=== PATIENT | male | born 1970 | race Caucasian/White ===

== ENCOUNTER → 2018-01-29 | Outpatient (REF) ==
[2015-09-01 11:06] VITALS: BMI 43.7
[~2018-01-29] MED LIST: CEFU250 PO; CEP500 PO; CEPH-13 PO; CEPH500C24 PO; CIP500 PO; CIPR-212 PO; CLIN300C99 PO; DOCU-299 PO; DYAZIDE PO; FER325 PO; FERR-41 PO; FLUN25SP NS; GUAI600T57 PO; HCTZ25 PO; HYDR-2966 PO; HYDR25CA83 PO; LISI-362 PO; LISINOPRIL PO; LOR7.5/325 PO; MEC125 PO; METH-280 PO; METR250 PO; MUPIROCIN; NAP250 PO; OMEP-153 PO; ONDA4TAB PO; PAN40 PO; PANT40TA13 PO; PER PO; PHENA200 PO; PRED-1 PO; PRED20TA6 PO; RANI-324 PO; SUCR1TAB51 PO; SULF-198 PO; TAM4 PO; TETR-30 PO; TRA50 PO; TRIA15CR40 TP; TRIA80OI13 TP; [UNRECOGNIZED DRUG - CODE] PO
--- NOTE | 2018-01-30 07:25 | PT INITIAL EVALUATION ---
MEDICAL DIAGNOSIS: Lymphedema TREATMENT DIAGNOSIS: B LE Phlebolymphedema, Venous Insufficiency DATE OF ONSET: 12/28/17 SUBJECTIVE: Yakov is a 47 year-old male presenting to physical therapy following gradual onset of B LE edema. Pt reports that the edema has developed over several years, and most recently it resulted in a large lobule affecting foot and gait mechanics requiring custom footwear. Pt reports no PABLO causing the swelling initially, but reports that it increased following a bout of cellulitis in 2015. Pt reports no pain with swelling other than pressure on the skin, and ankle joint stiffness from poor mechanics. REHAB PROBLEM LIST: Increased Pain Decreased ROM Decreased Strength Impaired Transfers Decreased Endurance Decreased Function Decreased ADL's Decreased Mobility Decreased Gait PREVIOUS MEDICAL HISTORY: Hydrochlorothiazide, See EMR OCCUPATION: Pt works at [employer]. OBJECTIVE: Pt presents with B LE swelling L>R. Pt has B hemosiderin staining on the L to mid calf and inferior portion of the calf on the R. Pt has a large lobule on the medial L ankle resulting in L hip lateral rotation when seated or supine. Pt also has developed a blister on the medial arch of the L foot which is being managed by wound care PT and nurse at the [facility]. ROM: Ankle ROM with moderate restrictions secondary to edema and lobule location. Palpation: Edema is soft to touch on the L with minimal fibrosis on the dorsum of the foot and surrounding the toes. Fibrosis is present with pitting edema on the medial aspect of the R distal extremity, foot and toes. Special Tests: Stemmer's sign (+) B dorsum, 1st and 2nd digits. Mobility: Pt requires assistance of 1 to transfer from seated to supine to help support B LE. Gait: Gait significant for decreased step length and height B, L hip lateral rotation with R foot pronation and medial arch collapse. Gait appears antalgic. Other Objective Findings: Circumferential measures in cm (L,R): 1st digit: 12.7 , 10.9, 2nd digit: 10.1, 7.4, dorsum: 36, 32.5, figure-8: 92, 80, above malleoli: 55.6, 41.5, widest part of the calf: 71, 52.8, below knee: 49, 45, above knee: 61, 55.5. ASSESSMENT: Pt shows signs and symptoms consistent with venous insufficiency B with secondary Phlebolymphedema. Physical therapy consisting of manual lymph drainage and compression wrapping is indicated for this patient to reduce B limb volume, and address the above listed impairments to improve function with ADL's and occupational activities. Short Term Goals In 2 weeks pt will decrease circumference of each calf by 2 cm for decreased leg volume resulting in improved abiltiy to perform transfers independently. In 2 weeks pt will be compliant with home HEP to increase muscular pump to manage venous return for improved outcomes with ADL's. In 2 weeks pt will be compliant with diuretics for management of edema for increased function with ADL's. Patient's Goals Decrease limb volume, increase function, decrease pain. PLAN: Patient to be seen for Manual Therapy/STM/MET Range of Motion Stretching Neuromuscular Re-ed Closed Chain Program Posture/Body mechanics Gait Trg/Balance Trg Home Exercise Program [facility]./Manual Traction Therapeutic Activities 5x/Week for 6 Weeks If you have any questions, comments, or concerns about this report or plan, please contact me at . Thank you, Michelle De Jesus, PT, DPT, CLT MTDD
== END ==
LOC: PT 13:44
PROVIDERS: ATTEND Family Medicine
DX: I89.0 Lymphedema, not elsewhere classified (principal); I87.2 Venous insufficiency (chronic) (peripheral); M25.671 Stiffness of right ankle, not elsewhere classified; M25.672 Stiffness of left ankle, not elsewhere classified
CPT/HCPCS: 97162

== ENCOUNTER → 2018-01-30 | Outpatient (REF) ==
[2015-09-01 11:06] VITALS: BMI 43.7
== END ==
LOC: PT 13:44
PROVIDERS: ATTEND Family Medicine
DX: I89.0 Lymphedema, not elsewhere classified (principal)

== ENCOUNTER → 2018-01-31 | Outpatient (REF) ==
[2015-09-01 11:06] VITALS: BMI 43.7
== END ==
LOC: PT 13:52
PROVIDERS: ATTEND Family Medicine
DX: I89.0 Lymphedema, not elsewhere classified (principal)

== ENCOUNTER → 2018-02-01 | Outpatient (REF) ==
[2015-09-01 11:06] VITALS: BMI 43.7
== END ==
LOC: PT 07:48
PROVIDERS: ATTEND Family Medicine
DX: I89.0 Lymphedema, not elsewhere classified (principal)

== ENCOUNTER → 2018-02-05 | Outpatient (REF) ==
[2015-09-01 11:06] VITALS: BMI 43.7
== END ==
LOC: PT 13:52
PROVIDERS: ATTEND Family Medicine
DX: I89.0 Lymphedema, not elsewhere classified (principal)

== ENCOUNTER → 2018-02-06 | Outpatient (REF) ==
[2015-09-01 11:06] VITALS: BMI 43.7
== END ==
LOC: PT 13:57
PROVIDERS: ATTEND Family Medicine
DX: I89.0 Lymphedema, not elsewhere classified (principal)

== ENCOUNTER → 2018-02-07 | Outpatient (REF) ==
[2015-09-01 11:06] VITALS: BMI 43.7
--- NOTE | 2018-02-07 17:06 | PT PLAN OF CARE ---
Physician: Veena Dorado MD Patient is being seen: [g OPPT.PTF] Therapist: Michelle De Jesus, PT, DPT, CLT Medical Diagnosis: B LE Phlebolymphedema, Venous Insufficiency Treatment Diagnosis: B LE Phlebolymphedema, Venous Insufficiency Date of Initial Evaluation: 01/29/18 Date patient was last seen: 02/07/18 Number of treatments: 7 Number of cancellations/No shows: 1 INTERVENTIONS: Manual Therapy/STM/MET Range of Motion Stretching Neuromuscular Re-ed Closed Chain Program Posture/Body mechanics Gait Trg/Balance Trg Home Exercise Program Mech./Manual Traction Therapeutic Activities Short Term Goals In 2 weeks pt will decrease circumference of each calf by 2 cm for decreased leg volume resulting in improved abiltiy to perform transfers independently. In 2 weeks pt will be compliant with home HEP to increase muscular pump to manage venous return for improved outcomes with ADL's. In 2 weeks pt will be compliant with diuretics for management of edema for increased function with ADL's. Patient's Goals Decrease limb volume, increase function, decrease pain. Status of Patient's Goals: In Progress Patient Compliance: Good Prognosis: Reasons for continuing therapy: Yakov shows significant reductions in B LE volume with associated improvement in function. On the L LE the circumferential volume of the calf has reduced by 17.8 cm allowing pt to wear clothing to his work without modifications as well as decreased work load with ambulation. Pt shows decreased size and weight of the lobule on the L LE resulting in improved foot mechanics and gait. Pt is now able to perform a straight leg raise on the R LE secondary to decreases in weight and volume assisting with improved ability to perform transfers. Further treatment is indicated for this patient to continue with limb volume reductions for improved function and transition towards compression garments and independent management. OBJECTIVE: Pt presents with B LE swelling L>R. Pt has B hemosiderin staining on the L to mid calf and inferior portion of the calf on the R. Pt has a large lobule on the medial L ankle resulting in L hip lateral rotation when seated or supine. Pt also has developed a blister on the medial arch of the L foot which is being managed by wound care PT and nurse at the [facility]. ROM: Ankle ROM with moderate restrictions on the L LE secondary to edema and lobule location, but with full ROM on the R ankle. Palpation: Edema is soft to touch on the L with minimal fibrosis on the dorsum of the foot and surrounding the toes. Fibrosis is present with pitting edema on the medial aspect of the R distal extremity, foot and toes. Special Tests: Stemmer's sign (+) B dorsum, 1st and 2nd digits. Mobility: Pt is able to transfer from seated to supine independently without assistance. Gait: Gait significant for decreased step length and height B, L hip lateral rotation with R foot pronation and medial arch collapse. Gait appears antalgic. Other Objective Findings: Initial Evaluation: Circumferential measures in cm (L, R): 1st digit: 12.7, 10.9, 2nd digit: 10.1, 7.4, dorsum: 36, 32.5, figure-8: 92 , 80, above malleoli: 55.6, 41.5, widest part of the calf: 71, 52.8, below knee : 49, 45, above knee: 61, 55.5. 02/07/18: Circumferential measures in cm (L,R): 1st digit: 12.0, 10.9, 2nd digit : 8.8, 7.0, dorsum: 31, 28.5, figure-8: 81.5, 74.1, above malleoli: 45.5, 39.7 , widest part of the calf: 53.2, 48.2, below knee: 49, 45, above knee: 56.5, 54.5. PLAN: 5x/Week for 6 Weeks If you have any questions, comments, or concerns about this report or plan, please contact me at . Thank you, Michelle De Jesus, PT, DPT, CLT RICHARD
== END ==
LOC: PT 14:00
PROVIDERS: ATTEND Family Medicine
DX: I89.0 Lymphedema, not elsewhere classified (principal); I87.2 Venous insufficiency (chronic) (peripheral)

== ENCOUNTER → 2018-02-08 | Outpatient (REF) ==
[2015-09-01 11:06] VITALS: BMI 43.7
== END ==
LOC: PT 13:59
PROVIDERS: ATTEND Family Medicine
DX: I89.0 Lymphedema, not elsewhere classified (principal)

== ENCOUNTER → 2018-02-09 | Outpatient (REF) ==
[2015-09-01 11:06] VITALS: BMI 43.7
== END ==
LOC: PT 14:07
PROVIDERS: ATTEND Family Medicine
DX: I89.0 Lymphedema, not elsewhere classified (principal)

== ENCOUNTER → 2018-02-12 | Outpatient (REF) ==
[2015-09-01 11:06] VITALS: BMI 43.7
== END ==
LOC: PT 14:12
PROVIDERS: ATTEND Family Medicine
DX: I89.0 Lymphedema, not elsewhere classified (principal)

== ENCOUNTER → 2018-02-13 | Outpatient (REF) ==
[2015-09-01 11:06] VITALS: BMI 43.7
== END ==
LOC: PT 14:08
PROVIDERS: ATTEND Family Medicine
DX: I89.0 Lymphedema, not elsewhere classified (principal)

== ENCOUNTER → 2018-02-14 | Outpatient (REF) ==
[2015-09-01 11:06] VITALS: BMI 43.7
== END ==
LOC: PT 14:02
PROVIDERS: ATTEND Family Medicine
DX: I89.0 Lymphedema, not elsewhere classified (principal)

== ENCOUNTER → 2018-02-15 | Outpatient (REF) ==
[2015-09-01 11:06] VITALS: BMI 43.7
== END ==
LOC: PT 14:04
PROVIDERS: ATTEND Family Medicine
DX: I89.0 Lymphedema, not elsewhere classified (principal); L89.892 Pressure ulcer of other site, stage 2

== ENCOUNTER 2018-02-16 09:19 | Emergency (ER) | payer BC ==
[2015-09-01 11:06] VITALS: Wt 195.0 kg
[2018-02-16] MEDS ORDERED: CEFEPIME HCL 2 GM VIAL IVP ONE (09:30)
[2018-02-16] MEDS ORDERED: DIPHTH/TETANUS/ACEL. PERTUSSIS IM ONLY ONE (09:30)
[2018-02-16] MEDS ORDERED: diphenhydrAMINE 50 MG/ML VIAL IVP ONE (09:30)
[2018-02-16] MEDS ORDERED: VANCOMYCIN(*) 1 GM VIAL 1 GM, VANCOMYCIN (*) 0.5 GM VIAL 0.25 GM in NS(*) 0.9% 250 ML B... IVPB ONE (09:30)
[2018-02-16] MEDS ORDERED: metroNIDAZOLE* 500MG/100ML BAG 100 ML IVPB ONE (09:30)
--- NOTE | 2018-02-16 09:59 | ER Report ---
History and Physical Time Seen By MD: 09:25 Hx. of Stated Complaint: PATIENT IS GOING TO OUTPATIENT REHAB FOR LYMPHEDEMA. HIS PHYSICAL THERAPIST IS CONCERNED ABOUT CELLULITIS ON HIS LET LEG HPI/ROS CHIEF COMPLAINT: Cellulitis left lower extremity HISTORY OF PRESENT ILLNESS: Patient is a 47-year-old male with past medical history for severe lymphedema and chronic wound ulcers to the feet. He is followed by physical therapy and was seen 2 days ago. He presents to the emergency department for evaluation of possible cellulitis to the left leg. Patient does report a fever last night 102. He denies any Reiger's or shaking chills he denies nausea vomiting or diarrhea. He denies chest pain or shortness of breath. Patient is employed and works at [employer]. REVIEW OF SYSTEMS: Constitutional: Fevers, no chills Cardiovascular: No chest pain, no palpitations. Respiratory: No cough, no shortness of breath. Gastrointestinal: No abdominal pain, no vomiting. Genitourinary: No hematuria. Musculoskeletal: No back pain. Skin: Patient with erythema to the left foot, leg just below the knee. Neurological: No headache. Allergies: Coded Allergies: piperacillin (Verified Allergy, Intermediate, RASH, 12/12/16) 09/09/15cah: Tolerated a full course of zosyn, but developed a rash that required benadryl. Rash persisted and gradually worsened until discontinuation. tazobactam (Verified Allergy, Intermediate, RASH, 12/12/16) 09/09/15cah: Tolerated a full course of zosyn, but developed a rash that required benadryl. Rash persisted and gradually worsened until discontinuation. Uncoded Allergies: TAPE (Adverse Reaction, Mild, 12/25/08) Home Meds Active Scripts Clindamycin Hcl (CLINDAMYCIN HCL) 300 Mg Capsule, 300 MG PO Q6H, #40 CAPSULE 0 Refills Prov:JEROMY GOOD MD 02/16/18 Reported Medications Hydrochlorothiazide (Hydrochlorothiazide) 25 Mg Tablet, 25 MG PO DAILY, 0 Refills 02/20/12 Discontinued Scripts Triamcinolone Acetonide 0.025% (TRIAMCINOLONE ACETONIDE 0.025%) 80 Gm Oint...g. , 1 GM TP BID for dermatits, #80 TUB Prov:VERITO PASTOR DO 12/11/16 Clindamycin Hcl (CLINDAMYCIN HCL) 300 Mg Capsule, 300 MG PO TID for infection, # 30 CAPSULE TAKE 1 CAPSULE EVERY SIX HOURS Prov:VERITO PASTOR DO 12/11/16 Sulfamethoxazole/Trimet 800-160 Mg Tab (BACTRIM DS TABLET) 1 Each Tablet, 1 TAB PO Q12H, #14 MG TAKE ONE TABLET BY MOUTH EVERY TWELVE HOURS Prov:PONCHO PEARSON MD 12/07/16 Past Medical/Surgical History Past medical history for lymphedema and chronic foot ulcers. Patient denies that he is a diabetic. Hx Smoking: Yes Smoking Status: Former Smoker Exposure to Second Hand Smoke?: Yes (From child x approximately 15-20 years) Hx Substance Use Disorder: Yes Hx Alcohol Use: No Constitutional Vital Sign - Last 24 Hours 02/16/18 02/16/18 02/16/18 02/16/18 09:26 09:32 09:33 09:34 Temp 98.2 Pulse 88 86 Resp 24 B/P (MAP) 133/87 (102) 133/87 136/74 (94) Pulse Ox 91 92 02/16/18 02/16/18 02/16/18 02/16/18 09:49 10:04 10:19 10:34 Pulse 82 84 86 84 B/P (MAP) 121/76 (91) Pulse Ox 90 92 92 93 02/16/18 02/16/18 02/16/18 02/16/18 10:39 11:00 11:09 11:30 Pulse 79 78 B/P (MAP) 126/79 (95) 116/70 (85) Pulse Ox 93 94 02/16/18 02/16/18 02/16/18 02/16/18 11:39 11:44 12:00 12:14 Pulse 77 78 82 B/P (MAP) 124/67 (86) Pulse Ox 93 93 02/16/18 12:30 B/P (MAP) 122/79 (93) Physical Exam General Appearance: The patient is alert, has no immediate need for airway protection and no signs of toxicity. Eyes: Pupils equal and round no pallor or injection. ENT, Mouth: Mucous membranes are moist. Respiratory: There are no retractions, lungs are clear to auscultation. Cardiovascular: Regular rate and rhythm. [ ] Gastrointestinal: Abdomen is soft and non tender, no masses, bowel sounds normal. Neurological: Awake alert GCS is 15 Skin: Patient has cellulitis to the left lower extremity just below the knee there is a fairly new ulcer to the heel of the foot. There is no purulent drainage noted. The right lower extremity is wrapped in a compression dressing. Musculoskeletal: Neck is supple non tender. Extremities noted for severe lymphedema left greater than right. Medical Decision Making Data Points Result Diagram: 02/16/18 0955 02/16/18 0955 Laboratory Hematology Test 02/16/18 09:55 Red Blood Count 4.68 M/uL (4.00-5.60) Mean Corpuscular Volume 83.3 fL (80.0-96.0) Mean Corpuscular Hemoglobin 29.5 pg (26.0-33.0) Mean Corpuscular Hemoglobin Concent 35.3 g/dL (32.0-36.0) Red Cell Distribution Width 14.2 % (11.5-14.5) Mean Platelet Volume 7.2 fL (7.2-11.1) Neutrophils (%) (Auto) 76.5 % (39.4-72.5) Lymphocytes (%) (Auto) 12.8 % (17.6-49.6) Monocytes (%) (Auto) 5.6 % (4.1-12.4) Eosinophils (%) (Auto) 4.2 % (0.4-6.7) Basophils (%) (Auto) 0.9 % (0.3-1.4) Nucleated RBC Relative Count (auto) 0.0 /100WBC Neutrophils # (Auto) 5.0 K/uL (2.0-7.4) Lymphocytes # (Auto) 0.8 K/uL (1.3-3.6) Monocytes # (Auto) 0.4 K/uL (0.3-1.0) Eosinophils # (Auto) 0.3 K/uL (0.0-0.5) Basophils # (Auto) 0.1 K/uL (0.0-0.1) Nucleated RBC Absolute Count (auto) 0.00 K/uL Erythrocyte Sedimentation Rate 29 mm/HOUR (0-15) Sodium Level 140 mmol/L (137-145) Potassium Level 3.6 mmol/L (3.5-5.0) Chloride Level 106 mmol/L (98-107) Carbon Dioxide Level 25 mmol/L (22-30) Blood Urea Nitrogen 16 mg/dl (9-21) Creatinine 0.80 mg/dl (0.66-1.25) Glomerular Filtration Rate Calc > 60.0 Random Glucose 110 mg/dl (75-110) Lactate 1.0 mmol/L (0.7-2.1) Calcium Level 8.7 mg/dl (8.4-10.2) Total Bilirubin 1.0 mg/dl (0.2-1.3) Aspartate Amino Transf (AST/SGOT) 16 U/L (0-35) Alanine Aminotransferase (ALT/SGPT) 26 U/L (0-56) Alkaline Phosphatase 76 U/L (0-126) C-Reactive Protein 8.9 mg/dl (<1.0) Total Protein 6.8 gm/dl (6.3-8.2) Albumin 3.5 g/dl (3.5-5.0) Chemistry Test 02/16/18 09:55 White Blood Count 6.6 k/uL (4.5-11.0) Red Blood Count 4.68 M/uL (4.00-5.60) Hemoglobin 13.8 g/dL (14.0-18.0) Hematocrit 39.0 % (42.0-52.0) Mean Corpuscular Volume 83.3 fL (80.0-96.0) Mean Corpuscular Hemoglobin 29.5 pg (26.0-33.0) Mean Corpuscular Hemoglobin Concent 35.3 g/dL (32.0-36.0) Red Cell Distribution Width 14.2 % (11.5-14.5) Platelet Count 216 K/uL (150-450) Mean Platelet Volume 7.2 fL (7.2-11.1) Neutrophils (%) (Auto) 76.5 % (39.4-72.5) Lymphocytes (%) (Auto) 12.8 % (17.6-49.6) Monocytes (%) (Auto) 5.6 % (4.1-12.4) Eosinophils (%) (Auto) 4.2 % (0.4-6.7) Basophils (%) (Auto) 0.9 % (0.3-1.4) Nucleated RBC Relative Count (auto) 0.0 /100WBC Neutrophils # (Auto) 5.0 K/uL (2.0-7.4) Lymphocytes # (Auto) 0.8 K/uL (1.3-3.6) Monocytes # (Auto) 0.4 K/uL (0.3-1.0) Eosinophils # (Auto) 0.3 K/uL (0.0-0.5) Basophils # (Auto) 0.1 K/uL (0.0-0.1) Nucleated RBC Absolute Count (auto) 0.00 K/uL Erythrocyte Sedimentation Rate 29 mm/HOUR (0-15) Glomerular Filtration Rate Calc > 60.0 Lactate 1.0 mmol/L (0.7-2.1) Calcium Level 8.7 mg/dl (8.4-10.2) Total Bilirubin 1.0 mg/dl (0.2-1.3) Aspartate Amino Transf (AST/SGOT) 16 U/L (0-35) Alanine Aminotransferase (ALT/SGPT) 26 U/L (0-56) Alkaline Phosphatase 76 U/L (0-126) C-Reactive Protein 8.9 mg/dl (<1.0) Total Protein 6.8 gm/dl (6.3-8.2) Albumin 3.5 g/dl (3.5-5.0) Microbiology Microbiology Date/Time Source Procedure Growth Status 02/16/18 10:13 Blood Peripheral Draw Blood Culture - Preliminary NO GROWTH AFTER 1 DAY, REINCUBATED Resulted 02/16/18 09:55 Blood Peripheral Draw Blood Culture - Preliminary NO GROWTH AFTER 1 DAY, REINCUBATED Resulted EKG/Imaging Imaging [place] [facility] [place] NAME: Yakov Jones : 1970 MR: [id number] V: [id number] EXAM DATE: [id number] ORDERING PHYSICIAN: JEROMY GOOD TECHNOLOGIST: Location: [facility] [place] Patient: Yakov Jones : 1970 Visit/Account:[id number] Date of Sevice: 02/16/2018 Exam type: FOOT 3 VIEW LEFT History: cellulitis with open wound Comparison: March 31, 2016. Findings: There is extensive soft tissue swelling seen about the left foot. there is plantar subluxation of the middle phalanx of the left great toe with respect to the proximal phalanx. There appear to be destructive changes of the distal phalanx of the left second toe although not ideally visualized. These could be chronic changes. Extensive degenerative changes throughout the interphalangeal joints and the left first metatarsophalangeal joint are present IMPRESSION: 1. Extensive soft tissue swelling about the left foot. Extensive degenerative changes seen throughout the interphalangeal joints and the left first metatarsophalangeal joint There is plantar subluxation of the middle phalanx of the left second toe with respect to the proximal phalanx There appear to be destructive changes of the distal phalanx of the left second toe although not ideally visualized. This could be chronic. If further evaluation is desired MR may be helpful Report Dictated By: Emely Vasquez MD at 02/16/2018 10:32 AM Report E-Signed By: Emely Vasquez MD at 02/16/2018 10:37 AM WSN:ANNA [place] [facility] [place]IENT NAME: Yakov Jones : 1970 MR: [id number] V: [id number] EXAM DATE: ORDERING PHYSICIAN: JEROMY GOOD TECHNOLOGIST: Location: [facility] [place] Patient: Yakov Jones : 1970 Visit/Account:[id number] Date of Sevice: 02/16/2018 Exam type: TIBIA FIBULA LEFT History: cellulitis with open wound Comparison: September 02, 2015. Findings: There is diffuse soft tissue edema seen about the left lower extremity below the knee. No soft tissue gas is identified. There is cortical thickening seen along the medial mid diaphysis of the left fibula. No evidence of danna osteomyelitis IMPRESSION: 1. Diffuse soft tissue edema about the left lower extremity below the knee.. There is cortical thickening along the medial mid diaphysis left fibula which may be reactive. No evidence of danna osteomyelitis Report Dictated By: Emely Vasquez MD at 02/16/2018 10:28 AM Report E-Signed By: Emely Vasquez MD at 02/16/2018 10:32 AM WSN:ANNA ED Course/Re-evaluation Clinical Indication for ER IV: IV Access ED Course 02/16/2018 9:58:08 am Michelle from physical therapythis patient well comes to the emergency department to check on the status of the patient's cellulitis. She reports significant improvement in the redness and erythema and tenderness since it was 1st diagnosed 2 days ago. Plan at this time will be medical workup we will do x-rays to look for evidence of osteomyelitis. According to physical therapy the cellulitis is actually improving on its own. My plan will be IV antibiotics to include vancomycin, cefepime and Flagyl to aggressively treat this patient is against staying in the hospital. She does appear nontoxic and is afebrile during this admission he has normal blood pressure and heart rate. No overt signs of systemic inflammatory response syndrome. Disposition pending workup. Decision to Disposition Date: Feb 16, 2018 Decision to Disposition Time: 12:00 Depart Departure Latest Vital Signs Vital Signs Date Time Temp Pulse Resp B/P (MAP) Pulse Ox O2 Delivery O2 Flow Rate FiO2 02/16/18 12:30 122/79 (93) 02/16/18 12:14 82 02/16/18 11:44 93 02/16/18 09:32 98.2 24 Impression: Primary Impression: Cellulitis of leg, left Condition: Improved Disposition: HOME OR SELF-CARE New Scripts Clindamycin Hcl (CLINDAMYCIN HCL) 300 Mg Capsule 300 MG PO Q6H, #40 CAPSULE 0 Refills Prov: JEROMY GOOD MD 02/16/18 Patient Instructions: Cellulitis (DC) Additional Instructions: Return to the emergency department immediately if your symptoms including redness, pain pus out of the wound or fever develop. Otherwise follow-up as scheduled for physical therapy. Get your antibiotic prescription filled and take as directed until completely gone. JEROMY GOOD MD Feb 16, 2018 09:59
[2018-02-16 10:08] LABS: PLATELET COUNT, AUTOMATED 216 K/uL (150-450)
--- NOTE | 2018-02-16 10:37 | RADIOLOGY IMAGING REPORT ---
FACILITY: [facility] PATIENT NAME: Yakov Jones : 1970 MR: [id number] V: [id number] EXAM DATE: ORDERING PHYSICIAN: JEROMY GOOD TECHNOLOGIST: Location: [facility] [place] Patient: Yakov Jones : 1970 Visit/Account:[id number] Date of Sevice: 02/16/2018 Exam type: TIBIA FIBULA LEFT History: cellulitis with open wound Comparison: September 02, 2015. Findings: There is diffuse soft tissue edema seen about the left lower extremity below the knee. No soft tissu e gas is identified. There is cortical thickening seen along the medial mid diaphysis of the left fi bula. No evidence of danna osteomyelitis IMPRESSION: 1. Diffuse soft tissue edema about the left lower extremity below the knee.. There is cortical thickening along the medial mid diaphysis left fibula which may be reactive. No ev idence of danna osteomyelitis Report Dictated By: Emely Vasquez MD at 02/16/2018 10:28 AM Report E-Signed By: Emely Vasquez MD at 02/16/2018 10:32 AM WSN:[email or web address]
--- NOTE | 2018-02-16 10:42 | RADIOLOGY IMAGING REPORT ---
FACILITY: [facility] PATIENT NAME: Yakvo Jones : 1970 MR: [id number] V: [id number] EXAM DATE: ORDERING PHYSICIAN: JEROMY GOOD TECHNOLOGIST: Location: [facility] [place] Patient: Yakov Jones : 1970 Visit/Account:[id number] Date of Sevice: 02/16/2018 Exam type: FOOT 3 VIEW LEFT History: cellulitis with open wound Comparison: March 31, 2016. Findings: There is extensive soft tissue swelling seen about the left foot. there is plantar subluxation of the middle phalanx of the left great toe with respect to the proxima l phalanx. There appear to be destructive changes of the distal phalanx of the left second toe altho ugh not ideally visualized. These could be chronic changes. Extensive degenerative changes througho ut the interphalangeal joints and the left first metatarsophalangeal joint are present IMPRESSION: 1. Extensive soft tissue swelling about the left foot. Extensive degenerative changes seen throughout the interphalangeal joints and the left first metatars ophalangeal joint There is plantar subluxation of the middle phalanx of the left second toe with respect to the proxima l phalanx There appear to be destructive changes of the distal phalanx of the left second toe although not idea lly visualized. This could be chronic. If further evaluation is desired MR may be helpful Report Dictated By: Emely Vasquez MD at 02/16/2018 10:32 AM Report E-Signed By: Emely Vasquez MD at 02/16/2018 10:37 AM WSN:ANNA
[2018-02-16] MEDS ORDERED: CLIN300C99 PO (11:02)
[2018-02-16 12:30] VITALS: BP 122/79
== END 2018-02-16 12:55 | disposition home or self-care (01) ==
LOC: ER 09:20
DX: L03.116 Cellulitis of left lower limb (principal)
CPT/HCPCS: 36415; 73590; 73630; 83605; 85025; 85651; 86140; 87040; 90471; 90715; 96365; 96368; 96375; 99284; J0692; J1200; J3370; J3490; J7050; 82040; 82247; 82310; 82374; 82435; 82565; 82947; 84075; 84132; 84155; 84295; 84450; 84460; 84520

== ENCOUNTER → 2018-02-16 | Outpatient (REF) ==
[2015-09-01 11:06] VITALS: BMI 43.7
== END ==
LOC: PT 11:04
PROVIDERS: ATTEND Family Medicine
DX: I89.0 Lymphedema, not elsewhere classified (principal); L03.116 Cellulitis of left lower limb

== ENCOUNTER → 2018-02-19 | Outpatient (REF) ==
[2015-09-01 11:06] VITALS: BMI 43.7
== END ==
LOC: PT 09:04
PROVIDERS: ATTEND Family Medicine
DX: I89.0 Lymphedema, not elsewhere classified (principal)

== ENCOUNTER → 2018-02-20 | Outpatient (REF) ==
[2015-09-01 11:06] VITALS: BMI 43.7
== END ==
LOC: PT 14:15
PROVIDERS: ATTEND Family Medicine
DX: I89.0 Lymphedema, not elsewhere classified (principal)

== ENCOUNTER → 2018-02-21 | Outpatient (REF) ==
[2015-09-01 11:06] VITALS: BMI 43.7
== END ==
LOC: PT 13:43
PROVIDERS: ATTEND Family Medicine
DX: I89.0 Lymphedema, not elsewhere classified (principal)

== ENCOUNTER → 2018-02-22 | Outpatient (REF) ==
[2015-09-01 11:06] VITALS: BMI 43.7
--- NOTE | 2018-02-22 07:49 | PT PLAN OF CARE ---
Physician: Veena Dorado MD Patient is being seen: 5x/Week Therapist: Michelle De Jesus, PT, DPT, CLT Medical Diagnosis: B LE Phlebolymphedema, Venous Insufficiency Treatment Diagnosis: B LE Phlebolymphedema, Venous Insufficiency Date of Initial Evaluation: 01/29/18 Date patient was last seen: 02/07/18 Number of treatments: 17 Number of cancellations/No shows: 1 INTERVENTIONS: Manual Therapy/STM/MET Range of Motion Stretching Neuromuscular Re-ed Closed Chain Program Posture/Body mechanics Gait Trg/Balance Trg Home Exercise Program Mech./Manual Traction Therapeutic Activities Short Term Goals In 2 weeks pt will decrease circumference of each calf by 2 cm for decreased leg volume resulting in improved abiltiy to perform transfers independently. In 2 weeks pt will be compliant with home HEP to increase muscular pump to manage venous return for improved outcomes with ADL's. In 2 weeks pt will be compliant with diuretics for management of edema for increased function with ADL's. Patient's Goals Decrease limb volume, increase function, decrease pain. Status of Patient's Goals: In Progress Patient Compliance: Good Prognosis: Reasons for continuing therapy: Secondary to recent bout of cellulitis on the L LE, pt shows increase in LE volume from previous reductions. However, pt's R LE continues to show reductions with likely progression to compression garments in the next week. With the initiation of antibiotics treatment is to resume on the L LE and further reductions are to be made. Despite onset of cellulitis pt continues to show improvement with gait mechanics with the L lobule maintaining reductions and allowing decreased L foot eversion with ambulation. Pt wounds all appear to be healing well, but at a slow rate and are being monitored by PT and [facility] at this time for treatment. OBJECTIVE: Pt presents with B LE swelling L>R. Pt has B hemosiderin staining on the L to mid calf and inferior portion of the calf on the R. Pt has a large lobule on the medial L ankle resulting in L hip lateral rotation when seated or supine. Pt also has developed a blister on the medial arch of the L foot which is being managed by wound care PT and nurse at the [facility]. ROM: Ankle ROM with moderate restrictions on the L LE secondary to edema and lobule location, but with full ROM on the R ankle. Palpation: Edema is soft to touch on the L with minimal fibrosis on the dorsum of the foot and surrounding the toes. Fibrosis is present with pitting edema on the medial aspect of the R distal extremity, foot and toes. Special Tests: Stemmer's sign (+) B dorsum, 1st and 2nd digits. Mobility: Pt is able to transfer from seated to supine independently without assistance. Gait: Gait significant for decreased step length and height B, L hip lateral rotation with R foot pronation and medial arch collapse. Gait appears antalgic. Other Objective Findings: Initial Evaluation: Circumferential measures in cm (L, R): 1st digit: 12.7, 10.9, 2nd digit: 10.1, 7.4, dorsum: 36, 32.5, figure-8: 92 , 80, above malleoli: 55.6, 41.5, widest part of the calf: 71, 52.8, below knee : 49, 45, above knee: 61, 55.5. 02/07/18: Circumferential measures in cm (L,R): 1st digit: 12.0, 10.9, 2nd digit: 8.8, 7.0, dorsum: 31, 28.5, figure-8: 81.5, 74.1, above malleoli: 45.5, 39.7, widest part of the calf: 53.2, 48.2, below knee: 49, 45, above knee: 56.5 , 54.5. 02/22/18: Circumferential measures in cm (L,R): 1st digit: 11.5, 10.0, 2nd digit: 8.5, 6.5, dorsum: 33, 29.8, figure-8: 83, 69, above malleoli: 45.3, 30.5 , widest part of the calf: 61.6, 48.5, below knee: 50.5, 45, above knee: 56.4, 52.0. PLAN: 5x/Week for 6 Weeks If you have any questions, comments, or concerns about this report or plan, please contact me at . Thank you, Michelle De Jesus, PT, DPT, CLT ODALYS
== END ==
LOC: PT 14:05
PROVIDERS: ATTEND Family Medicine
DX: I89.0 Lymphedema, not elsewhere classified (principal); I87.2 Venous insufficiency (chronic) (peripheral)

== ENCOUNTER → 2018-02-23 | Outpatient (REF) ==
[2015-09-01 11:06] VITALS: BMI 43.7
== END ==
LOC: PT 13:48
PROVIDERS: ATTEND Family Medicine
DX: I89.0 Lymphedema, not elsewhere classified (principal)

== ENCOUNTER → 2018-02-26 | Outpatient (REF) ==
[2015-09-01 11:06] VITALS: BMI 43.7
== END ==
LOC: PT 13:58
PROVIDERS: ATTEND Family Medicine
DX: I89.0 Lymphedema, not elsewhere classified (principal); L89.891 Pressure ulcer of other site, stage 1

== ENCOUNTER → 2018-02-27 | Outpatient (REF) ==
[2015-09-01 11:06] VITALS: BMI 43.7
== END ==
LOC: PT 14:07
PROVIDERS: ATTEND Family Medicine
DX: I89.0 Lymphedema, not elsewhere classified (principal)

== ENCOUNTER → 2018-02-28 | Outpatient (REF) ==
[2015-09-01 11:06] VITALS: BMI 43.7
== END ==
LOC: PT 14:08
PROVIDERS: ATTEND Family Medicine
DX: I89.0 Lymphedema, not elsewhere classified (principal)

== ENCOUNTER → 2018-03-01 | Outpatient (REF) ==
[2015-09-01 11:06] VITALS: BMI 43.7
== END ==
LOC: PT 14:04
PROVIDERS: ATTEND Family Medicine
DX: I89.0 Lymphedema, not elsewhere classified (principal)

== ENCOUNTER → 2018-03-02 | Outpatient (REF) ==
[2015-09-01 11:06] VITALS: BMI 43.7
== END ==
LOC: PT 14:12
PROVIDERS: ATTEND Family Medicine
DX: I89.0 Lymphedema, not elsewhere classified (principal)

== ENCOUNTER → 2018-03-05 | Outpatient (REF) ==
[2015-09-01 11:06] VITALS: BMI 43.7
== END ==
PROVIDERS: ATTEND Family Medicine
DX: I89.0 Lymphedema, not elsewhere classified (principal)

== ENCOUNTER → 2018-03-06 | Outpatient (REF) ==
[2015-09-01 11:06] VITALS: BMI 43.7
[~2018-03-06] MED LIST changes: -RANI-324 PO; +RANI-366 PO
== END ==
LOC: PT 13:44
PROVIDERS: ATTEND Family Medicine
DX: I89.0 Lymphedema, not elsewhere classified (principal)

== ENCOUNTER → 2018-03-07 | Outpatient (REF) ==
[2015-09-01 11:06] VITALS: BMI 43.7
== END ==
LOC: PT 14:09
PROVIDERS: ATTEND Family Medicine
DX: I89.0 Lymphedema, not elsewhere classified (principal)

== ENCOUNTER → 2018-03-08 | Outpatient (REF) ==
[2015-09-01 11:06] VITALS: BMI 43.7
--- NOTE | 2018-03-09 09:21 | PT PLAN OF CARE ---
Physician: Veena Dorado MD Patient is being seen: 5x/Week Therapist: Michelle De Jesus, PT, DPT, CLT Medical Diagnosis: B LE Phlebolymphedema, Venous Insufficiency Treatment Diagnosis: B LE Phlebolymphedema, Venous Insufficiency Date of Initial Evaluation: 01/29/18 Date patient was last seen: 03/08/18 Number of treatments: 28 Number of cancellations/No shows: 1 INTERVENTIONS: Manual Therapy/STM/MET Range of Motion Stretching Neuromuscular Re-ed Closed Chain Program Posture/Body mechanics Gait Trg/Balance Trg Home Exercise Program Mech./Manual Traction Therapeutic Activities Short Term Goals In 2 weeks pt will decrease circumference of each calf by 2 cm for decreased leg volume resulting in improved abiltiy to perform transfers independently. In 2 weeks pt will be compliant with home HEP to increase muscular pump to manage venous return for improved outcomes with ADL's. In 2 weeks pt will be compliant with diuretics for management of edema for increased function with ADL's. Patient's Goals Decrease limb volume, increase function, decrease pain. Status of Patient's Goals: In Progress Patient Compliance: Good Prognosis: Reasons for continuing therapy: Yakov continues to show good reductions with significant improvement in leg healing, volume and texture following recovery from bout of cellulitis. R LE shows near full reductions with only lingering edema in the malleolar region. The L LE no longer has a lobule present along the ankle and reductions continue throughout the LE with the foot near fully reduced. Pt wounds are managed by the [facility] on a weekly basis with dressing changes taking place with lymphedema wrapping qd or qod. Pt shows improved foot posture mechanics on the L LE with decreased inversion with reduction of previous lobule on the medial ankle as well as with attention to gait mechanics. Pt has been started on an ankle strengthening HEP with Therabrand to improve ankle stability with increase in mobility. Pt is to be measured in the next week for compression alternative garments for independent management of edema following discharge. OBJECTIVE: Pt presents with B LE swelling L>R. Pt has B hemosiderin staining on the L to mid calf and inferior portion of the calf on the R. Pt blister on medial arch of L foot appears to be healing with progressive decrease in circumference as well as depth. Pt has blisters on the dorsum of B feet secondary to footwear. ROM: Ankle ROM with moderate restrictions on the L LE secondary to edema and lobule location, but with full ROM on the R ankle. Palpation: Edema is soft to touch on the L with minimal fibrosis on the dorsum of the foot and surrounding the toes. Fibrosis is present with pitting edema on the medial aspect of the B distal extremity. Special Tests: Stemmer's sign (-) B dorsum, 1st and 2nd digits. Mobility: Pt is able to transfer from seated to supine independently without assistance. Gait: Gait significant for decreased step length and height B, L hip lateral rotation with R foot pronation and medial arch collapse. Gait appears antalgic. Other Objective Findings: Initial Evaluation: Circumferential measures in cm (L, R): 1st digit: 12.7, 10.9, 2nd digit: 10.1, 7.4, dorsum: 36, 32.5, figure-8: 92 , 80, above malleoli: 55.6, 41.5, widest part of the calf: 71, 52.8, below knee : 49, 45, above knee: 61, 55.5. 02/07/18: Circumferential measures in cm (L,R): 1st digit: 12.0, 10.9, 2nd digit: 8.8, 7.0, dorsum: 31, 28.5, figure-8: 81.5, 74.1, above malleoli: 45.5, 39.7, widest part of the calf: 53.2, 48.2, below knee: 49, 45, above knee: 56.5 , 54.5. 02/22/18: Circumferential measures in cm (L,R): 1st digit: 11.5, 10.0, 2nd digit: 8.5, 6.5, dorsum: 33, 29.8, figure-8: 83, 69, above malleoli: 45.3, 30.5 , widest part of the calf: 61.6, 48.5, below knee: 50.5, 45, above knee: 56.4, 52.0. 03/08/18: Circumferential measures in cm (L,R): 1st digit: 11.0, 10.6, 2nd digit: 7.2, 6.5, dorsum: 29.8, 29.2, figure-8: 75, 65.5, above malleoli: 37.5, 28.4, widest part of the calf: 55, 47.5, below knee: 48.6, 45, above knee: 56, 51. PLAN: 5x/Week for 6 Weeks If you have any questions, comments, or concerns about this report or plan, please contact me at . Thank you, Michelle De Jesus, PT, DPT, CLT MTDD
== END ==
LOC: PT 14:07
PROVIDERS: ATTEND Family Medicine
DX: I89.0 Lymphedema, not elsewhere classified (principal)

== ENCOUNTER → 2018-03-09 | Outpatient (REF) ==
[2015-09-01 11:06] VITALS: BMI 43.7
== END ==
LOC: PT 14:00
PROVIDERS: ATTEND Family Medicine
DX: I89.0 Lymphedema, not elsewhere classified (principal)

== ENCOUNTER → 2018-03-12 | Outpatient (REF) ==
[2015-09-01 11:06] VITALS: BMI 43.7
== END ==
LOC: PT 13:57
PROVIDERS: ATTEND Family Medicine
DX: I89.0 Lymphedema, not elsewhere classified (principal)

== ENCOUNTER → 2018-03-13 | Outpatient (REF) ==
[2015-09-01 11:06] VITALS: BMI 43.7
== END ==
LOC: PT 14:07
PROVIDERS: ATTEND Family Medicine
DX: I89.0 Lymphedema, not elsewhere classified (principal)

== ENCOUNTER → 2018-03-14 | Outpatient (REF) ==
[2015-09-01 11:06] VITALS: BMI 43.7
== END ==
LOC: PT 14:18
PROVIDERS: ATTEND Family Medicine
DX: I89.0 Lymphedema, not elsewhere classified (principal)

== ENCOUNTER → 2018-03-15 | Outpatient (REF) ==
[2015-09-01 11:06] VITALS: BMI 43.7
== END ==
LOC: PT 14:06
PROVIDERS: ATTEND Family Medicine
DX: I89.0 Lymphedema, not elsewhere classified (principal)

== ENCOUNTER → 2018-03-16 | Outpatient (REF) ==
[2015-09-01 11:06] VITALS: BMI 43.7
== END ==
LOC: PT 14:04
PROVIDERS: ATTEND Family Medicine
DX: I89.0 Lymphedema, not elsewhere classified (principal)

== ENCOUNTER → 2018-03-19 | Outpatient (REF) ==
[2015-09-01 11:06] VITALS: BMI 43.7
== END ==
LOC: PT 14:07
PROVIDERS: ATTEND Family Medicine
DX: I89.0 Lymphedema, not elsewhere classified (principal)

== ENCOUNTER → 2018-03-20 | Outpatient (REF) ==
[2015-09-01 11:06] VITALS: BMI 43.7
== END ==
LOC: PT 14:06
PROVIDERS: ATTEND Family Medicine
DX: I89.0 Lymphedema, not elsewhere classified (principal)

== ENCOUNTER → 2018-03-21 | Outpatient (REF) ==
[2015-09-01 11:06] VITALS: BMI 43.7
== END ==
LOC: PT 12:09
PROVIDERS: ATTEND Family Medicine
DX: I89.0 Lymphedema, not elsewhere classified (principal)

== ENCOUNTER → 2018-03-22 | Outpatient (REF) ==
[2015-09-01 11:06] VITALS: BMI 43.7
--- NOTE | 2018-03-23 11:35 | PT PLAN OF CARE ---
Physician: Patient is being seen: 5x/Week Therapist: Michelle De Jesus, PT, DPT, CLT Medical Diagnosis: Treatment Diagnosis: Date of Onset: Date of Initial Evaluation: Date patient was last seen: 03/22/18 Number of treatments: 38 Number of cancellations/No shows: 1 INTERVENTIONS: Manual Therapy/STM/MET Range of Motion Stretching Neuromuscular Re-ed Closed Chain Program Posture/Body mechanics Gait Trg/Balance Trg Home Exercise Program Mech./Manual Traction Therapeutic Activities Short Term Goals In 2 weeks pt will decrease circumference of each calf by 2 cm for decreased leg volume resulting in improved ability to perform transfers independently. In 2 weeks pt will be compliant with home HEP to increase muscular pump to manage venous return for improved outcomes with ADL's. In 2 weeks pt will be compliant with diuretics for management of edema for increased function with ADL's. Patient's Goals Decrease limb volume, increase function, decrease pain. Status of Patient's Goals: In Progress Patient Compliance: Good Prognosis: Reasons for continuing therapy: Pt ReadyWrap garments have arrived as have compression stockings. Stocking and garment was applied to the R LE with good fitting and no pt complaints of pressure problems. R compression sock was shorter than anticipated but will provide the compression in the foot and ankle as required. PT to continue with MLD treatment on B LE but only continue with compression wrapping on the L LE at this time with R side progression to maintenance phase. OBJECTIVE: Pt presents with B LE swelling L>R. Pt has B hemosiderin staining on the L to mid calf and inferior portion of the calf on the R. Pt blister on medial arch of L foot appears to be healing with progressive decrease in circumference as well as depth. Pt has blisters on the dorsum of B feet secondary to footwear. ROM: Ankle ROM with moderate restrictions on the L LE secondary to edema and lobule location, but with full ROM on the R ankle. Palpation: Edema is soft to touch on the L with minimal fibrosis on the dorsum of the foot and surrounding the toes. Fibrosis is present with pitting edema on the medial aspect of the B distal extremity. Special Tests: Stemmer's sign (-) B dorsum, 1st and 2nd digits. Lymphedema Life Impact Scale: 31/68 Mobility: Pt is able to transfer from seated to supine independently without assistance. Gait: Gait significant for decreased step length and height B, L hip lateral rotation with R foot pronation and medial arch collapse. Gait appears antalgic. Other Objective Findings: Initial Evaluation: Circumferential measures in cm (L, R): 1st digit: 12.7, 10.9, 2nd digit: 10.1, 7.4, dorsum: 36, 32.5, figure-8: 92 , 80, above malleoli: 55.6, 41.5, widest part of the calf: 71, 52.8, below knee : 49, 45, above knee: 61, 55.5. 02/07/18: Circumferential measures in cm (L,R): 1st digit: 12.0, 10.9, 2nd digit: 8.8, 7.0, dorsum: 31, 28.5, figure-8: 81.5, 74.1, above malleoli: 45.5, 39.7, widest part of the calf: 53.2, 48.2, below knee: 49, 45, above knee: 56.5 , 54.5. 02/22/18: Circumferential measures in cm (L,R): 1st digit: 11.5, 10.0, 2nd digit: 8.5, 6.5, dorsum: 33, 29.8, figure-8: 83, 69, above malleoli: 45.3, 30.5 , widest part of the calf: 61.6, 48.5, below knee: 50.5, 45, above knee: 56.4, 52.0. 03/08/18: Circumferential measures in cm (L,R): 1st digit: 11.0, 10.6, 2nd digit: 7.2, 6.5, dorsum: 29.8, 29.2, figure-8: 75, 65.5, above malleoli: 37.5, 28.4, widest part of the calf: 55, 47.5, below knee: 48.6, 45, above knee: 56, 51. 5/02/04: Circumferential measures in cm (L,R): 1st digit: 11.0, 9.8, 2nd digit : 7.2, 6.6, dorsum: 29.8, 28.8, heel: 44.6, 43.4, figure-8: 75, 67.6, above malleoli: 36.3, 28.6, widest part of the calf: 54.5, 45.4, below knee: 48, 45, above knee: 56, 51. PLAN: 5x/Week for 6 Weeks If you have any questions, comments, or concerns about this report or plan, please contact me at . Thank you, Michelle De Jesus, PT, DPT, CLT MTDD
== END ==
LOC: PT 13:53
PROVIDERS: ATTEND Family Medicine
DX: I89.0 Lymphedema, not elsewhere classified (principal)

== ENCOUNTER → 2018-03-23 | Outpatient (REF) ==
[2015-09-01 11:06] VITALS: BMI 43.7
== END ==
LOC: PT 14:00
PROVIDERS: ATTEND Family Medicine
DX: I89.0 Lymphedema, not elsewhere classified (principal)

== ENCOUNTER → 2018-03-26 | Outpatient (REF) ==
[2015-09-01 11:06] VITALS: BMI 43.7
== END ==
LOC: PT 14:00
PROVIDERS: ATTEND Family Medicine
DX: I89.0 Lymphedema, not elsewhere classified (principal)

== ENCOUNTER → 2018-03-27 | Outpatient (REF) ==
[2015-09-01 11:06] VITALS: BMI 43.7
== END ==
LOC: PT 14:12
PROVIDERS: ATTEND Family Medicine
DX: I89.0 Lymphedema, not elsewhere classified (principal)

== ENCOUNTER → 2018-03-28 | Outpatient (REF) ==
[2015-09-01 11:06] VITALS: BMI 43.7
== END ==
LOC: PT 14:05
PROVIDERS: ATTEND Family Medicine
DX: I89.0 Lymphedema, not elsewhere classified (principal)

== ENCOUNTER → 2018-03-29 | Outpatient (REF) ==
[2015-09-01 11:06] VITALS: BMI 43.7
--- NOTE | 2018-03-30 14:52 | PT PLAN OF CARE ---
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 MET In 2 weeks pt will be compliant with home HEP to increase muscular pump to manage venous return for improved outcomes with ADL's. MET In 2 weeks pt will be compliant with diuretics for management of edema for increased function with ADL's. MET Patient's Goals Decrease limb volume, increase function, decrease pain. Status of Patient's Goals: In Progress Patient Compliance: Good Prognosis: Reasons for discharge from therapy: Yakov is to discharge from physical therapy at this time secondary to budgetary restrictions. Upon discharge pt continued to show progressive reductions of B LE with decreased edema and fibrosis. Pt shows improved functional mobility with ADL's with improved ability to wear clothing and foot wear without wound formation. Pt is to continue with self reduction wrapping as well as maintenance of volume with compression wraps and garments. Wound care is to continually be monitored by the [facility] until closure. If financial restrictions are no longer present at a later time it is my recommendation that this patient would benefit from further CDT treatment OBJECTIVE: ROM: Ankle ROM full in B ankles Palpation: Edema is soft to touch on the L with minimal fibrosis on the dorsum of the foot and surrounding the toes. Fibrosis is present with pitting edema on the medial aspect of the B distal extremity. Special Tests: Stemmer's sign (-) B dorsum, 1st and 2nd digits. Lymphedema Life Impact Scale: 31/68 Mobility: Pt is able to transfer from seated to supine independently without assistance. Gait: Gait significant for decreased step length and height B, L hip lateral rotation with R foot pronation and medial arch collapse. Gait appears antalgic. Other Objective Findings: Initial Evaluation: Circumferential measures in cm (L, R): 1st digit: 12.7, 10.9, 2nd digit: 10.1, 7.4, dorsum: 36, 32.5, figure-8: 92 , 80, above malleoli: 55.6, 41.5, widest part of the calf: 71, 52.8, below knee : 49, 45, above knee: 61, 55.5. 02/07/18: Circumferential measures in cm (L,R): 1st digit: 12.0, 10.9, 2nd digit: 8.8, 7.0, dorsum: 31, 28.5, figure-8: 81.5, 74.1, above malleoli: 45.5, 39.7, widest part of the calf: 53.2, 48.2, below knee: 49, 45, above knee: 56.5 , 54.5. 02/22/18: Circumferential measures in cm (L,R): 1st digit: 11.5, 10.0, 2nd digit: 8.5, 6.5, dorsum: 33, 29.8, figure-8: 83, 69, above malleoli: 45.3, 30.5 , widest part of the calf: 61.6, 48.5, below knee: 50.5, 45, above knee: 56.4, 52.0. 03/08/18: Circumferential measures in cm (L,R): 1st digit: 11.0, 10.6, 2nd digit: 7.2, 6.5, dorsum: 29.8, 29.2, figure-8: 75, 65.5, above malleoli: 37.5, 28.4, widest part of the calf: 55, 47.5, below knee: 48.6, 45, above knee: 56, 51. 5/02/04: Circumferential measures in cm (L,R): 1st digit: 11.0, 9.8, 2nd digit : 7.2, 6.6, dorsum: 29.8, 28.8, heel: 44.6, 43.4, figure-8: 75, 67.6, above malleoli: 36.3, 28.6, widest part of the calf: 54.5, 45.4, below knee: 48, 45, above knee: 56, 51. 5: Circumferential measures in cm (L,R): 1st digit: 11.0, 9.8, 2nd digit: 7.2, 6.6, dorsum: 29.8, 28.8, heel: 42.8, 43.4, figure-8: 73.5, 67.6, above malleoli: 32.7, 28.6, widest part of the calf: 49.9, 45.4, below knee: 47.5, 45, above knee: 55.7, 51. If you have any questions, comments, or concerns about this report or plan, please contact me at . Thank you, Michelle De Jesus, PT, DPT, CLT MTDD
== END ==
LOC: PT 14:04
PROVIDERS: ATTEND Family Medicine
DX: I89.0 Lymphedema, not elsewhere classified (principal); I87.2 Venous insufficiency (chronic) (peripheral)

== ENCOUNTER → 2018-08-24 | Outpatient (REF) ==
[2015-09-01 11:06] VITALS: BMI 43.7
--- NOTE | 2018-08-24 17:08 | RADIOLOGY IMAGING REPORT ---
FACILITY: [facility] PATIENT NAME: Yakov Jones : 1970 MR: [id number] V: [id number] EXAM DATE: ORDERING PHYSICIAN: AUSTIN VILLAR TECHNOLOG[place] [facility] [place] : 1970 Visit/Account:[id number] Date of Sevice: 08/24/2018 Study: CT scan of the paranasal sinuses Indication:Sinusitis Comparison study:None Technique: Multiple axial images were obtained through the paranasal sinuses. Coronal and sagittal 2- dimensional reconstructions were made from the original data set. One of the following dose optimization techniques was utilized in the performance of this exam: Autom ated exposure control; adjustment of the mA and/or kV according to the patient's size; or use of an i terative reconstruction technique. Specific details can be referenced in the facility's radiology C T exam operational policy. Findings: Maxillary sinuses: There is a small retention cyst present within the inferior left maxillary sinus. There is mild mucosal thickening at the inferior right maxillary antrum. Ethmoid air cells:Unremarkable Sphenoid sinus:Unremarkable Frontal sinus:Unremarkable Ostiomeatal units:Patent bilaterally. The ostiomeatal units are narrowed bilaterally due to William ce lls Nasal septum: The anterior nasal septum is deviated to the right. The nasal septum contacts the right inferior turbinate. IMPRESSION: Deviation of the nasal septum to the right as described. Minimal bilateral axillary sinus disease. The ostiomeatal units are patent but narrowed bilaterally due to William cells. Report Dictated By: Stas Soni at 08/24/2018 5:01 PM Report E-Signed By: Stas Soni at 08/24/2018 5:03 PM [id number]
== END ==
LOC: CT 04:16
PROVIDERS: ATTEND Family Medicine
DX: J34.2 Deviated nasal septum (principal)
CPT/HCPCS: 70486

== ENCOUNTER → 2019-02-08 | Outpatient (REF) ==
[2015-09-01 11:06] VITALS: BMI 43.7
[~2019-02-08] MED LIST changes: +CHOL10005 PO; +LISI5TAB25 PO; +POTA99TA15 PO
--- NOTE | 2019-02-08 10:08 | RADIOLOGY IMAGING REPORT ---
FACILITY: [facility] PATIENT NAME: Yakov Jones : 1970 MR: [id number] V: [id number] EXAM DATE: ORDERING PHYSICIAN: AUSTIN VILLAR TECHNOLOGIST: Location: [facility] [place] Patient: Yakov Jones : 1970 Visit/Account:[id number] Date of Sevice: 02/08/2019 This patient was scheduled for a MRI examination of the right foot could be performed without and wit h IV contrast. The patient did not enter the MRI suite due to exceeding the weight limit of the MRI s canner. Therefore, no imaging was performed. Report Dictated By: Wilbur Cantu at 02/08/2019 10:01 AM Report E-Signed By: Wilbur Cantu at 02/08/2019 10:04 AM WSN:[id number]
== END ==
LOC: MRI 01:09
PROVIDERS: ATTEND Family Medicine
DX: Z02.9 Encounter for administrative examinations, unspecified (principal)

== ENCOUNTER 2019-06-02 21:54 | Emergency (ER) | payer SELFPAY ==
[2015-09-01 11:06] VITALS: Wt 195.0 kg
[~2019-06-02 21:54] MED LIST changes: -RANI-366 PO; +RANI-54 PO
[2019-06-02 22:07] VITALS: BP 132/73
--- NOTE | 2019-06-02 22:10 | ER Report ---
History and Physical Time Seen By MD: 22:07 Hx. of Stated Complaint: PT REPORTS PAIN ON BILATERAL FEET THAT STARTED TODAY. PT REPORTS DIFFICULTY WALKING. PT HAS EDEMA AND SORES OF FEET. HPI/ROS CHIEF COMPLAINT: Foot pain HISTORY OF PRESENT ILLNESS: This is a 49-year-old male. He has a history of severe lymphedema with foot ulcers. He has been following up with [facility] wound care center. Today the wound on his left foot has been hurting more. Denies any fevers or chills. Has been caring for the feet with dressing changes on a daily basis. Having some increased red colored drainage from the wound. Allergies: Coded Allergies: piperacillin (Verified Allergy, Intermediate, RASH, 12/12/16) 09/09/15cah: Tolerated a full course of zosyn, but developed a rash that required benadryl. Rash persisted and gradually worsened until discontinuation. tazobactam (Verified Allergy, Intermediate, RASH, 12/12/16) 09/09/15cah: Tolerated a full course of zosyn, but developed a rash that required benadryl. Rash persisted and gradually worsened until discontinuation. Uncoded Allergies: TAPE (Adverse Reaction, Mild, 12/25/08) Home Meds Active Scripts Hydrocodone Bit/Acetaminophen (HYDROCODON-ACETAMINOPHEN 5-325) 1 Each Tablet, 1 EACH PO Q4H PRN for PAIN, #12 TAB 0 Refills Prov:SCOTTIE VELASQUEZ MD 06/03/19 Reported Medications [Antidepressan] No Conflict Check 06/02/19 Celecoxib (CELEBREX) 200 Mg Capsule, 200 MG PO BID, CAPSULE 06/02/19 Lisinopril (LISINOPRIL) Unknown Strength Tablet, PO QDAY, TAB 11/08/18 Discontinued Reported Medications Potassium (POTASSIUM) Unknown Strength Tablet, PO 11/08/18 Cholecalciferol (Vitamin D3) (VITAMIN D3) Unknown Strength Tablet, PO, TAB 11/08/18 Discontinued Scripts Clindamycin Hcl (CLINDAMYCIN HCL) 300 Mg Capsule, 300 MG PO Q6H, #40 CAPSULE 0 Refills Prov:JEROMY GOOD MD 02/16/18 Reviewed Nurses Notes: Yes Hx Smoking: Yes Smoking Status: Former Smoker Exposure to Second Hand Smoke?: Yes (From child x approximately 15-20 years) Hx Substance Use Disorder: Yes Hx Alcohol Use: No Constitutional Vital Sign - Last 24 Hours 06/02/19 22:07 Pulse 85 Resp 24 B/P (MAP) 132/73 Pulse Ox 89 O2 Delivery Room Air Physical Exam Gen.: Alert, no acute distress. Skin: Mutiple ulcers on feet, chronic in appearance. The larger ulcer on left foot that is painful has serous drainage. No foul smell and no purulence noted. Does tunnel centrally. Severe lymphedema in legs. Medical Decision Making Data Points Result Diagram: 06/02/19222906/02/192229 Laboratory Hematology Test 06/02/19 22:30 White Blood Count 6.9 k/uL (4.5-11.0) Red Blood Count 4.27 M/uL (4.00-5.60) Hemoglobin 11.7 g/dL (14.0-18.0) L Hematocrit 34.1 % (42.0-52.0) L Mean Corpuscular Volume 79.9 fL (80.0-96.0) L Mean Corpuscular Hemoglobin 27.3 pg (26.0-33.0) Mean Corpuscular Hemoglobin Concent 34.2 g/dL (32.0-36.0) Red Cell Distribution Width 16.9 % (11.5-14.5) H Platelet Count 269 K/uL (150-450) Mean Platelet Volume 6.9 fL (7.2-11.1) L Neutrophils (%) (Auto) 78.1 % (39.4-72.5) H Lymphocytes (%) (Auto) 10.9 % (17.6-49.6) L Monocytes (%) (Auto) 8.8 % (4.1-12.4) Eosinophils (%) (Auto) 1.0 % (0.4-6.7) Basophils (%) (Auto) 1.2 % (0.3-1.4) Nucleated RBC Relative Count (auto) 0.0 /100WBC Neutrophils # (Auto) 5.4 K/uL (2.0-7.4) Lymphocytes # (Auto) 0.8 K/uL (1.3-3.6) L Monocytes # (Auto) 0.6 K/uL (0.3-1.0) Eosinophils # (Auto) 0.1 K/uL (0.0-0.5) Basophils # (Auto) 0.1 K/uL (0.0-0.1) Nucleated RBC Absolute Count (auto) 0.00 K/uL Erythrocyte Sedimentation Rate 40 mm/HOUR (0-20) H Chemistry Test 06/02/19 22:30 Sodium Level 144 mmol/L (137-145) Potassium Level 3.4 mmol/L (3.5-5.0) Chloride Level 109 mmol/L (98-107) Carbon Dioxide Level 26 mmol/L (22-30) Blood Urea Nitrogen 18 mg/dl (9-21) Creatinine 1.00 mg/dl (0.66-1.25) Glomerular Filtration Rate Calc > 60.0 Random Glucose 118 mg/dl (75-110) Calcium Level 8.8 mg/dl (8.4-10.2) Total Bilirubin 0.8 mg/dl (0.2-1.3) Aspartate Amino Transf (AST/SGOT) 16 U/L (0-35) Alanine Aminotransferase (ALT/SGPT) 29 U/L (0-56) Alkaline Phosphatase 78 U/L (0-126) C-Reactive Protein 12.1 mg/dl (<1.0) Total Protein 6.9 g/dl (6.3-8.2) Albumin 3.4 g/dl (3.5-5.0) ED Course/Re-evaluation ED Course White count is normal. Has elevated CRP and ESR. x-rays without acute problem. He needs an MRI and encouraged him to follow-up with this. Lortab for pain, Crutches to help with mobility, but a walker would be better, although he does not want a walker because of stigma. Follow-up tomorrow with the wound clinic. Decision to Disposition Date: Jun 03, 2019 Decision to Disposition Time: 00:07 Depart Departure Latest Vital Signs Vital Signs Date Time Temp Pulse Resp B/P (MAP) Pulse Ox O2 Delivery O2 Flow Rate FiO2 06/02/19 22:07 85 24 132/73 89 Room Air Impression: Primary Impression: Foot ulcer, left Additional Impression: Lower extremity edema Condition: Improved Disposition: HOME OR SELF-CARE New Scripts Hydrocodone Bit/Acetaminophen (HYDROCODON-ACETAMINOPHEN 5-325) 1 Each Tablet 1 EACH PO Q4H PRN for PAIN, #12 TAB 0 Refills Prov: SCOTTIE VELASQUEZ MD 06/03/19 Patient Instructions: Pressure Ulcer (ED) Additional Instructions: Follow-up with the wound clinic tomorrow as planned. Continue to clean and dress the ulcers on your feet as you are doing. Your doctor may want to have you get an MRI of your feet to rule out infection in the bone. Drainage does not appear infected tonight. Lortab 5/325, one every 4 hours as needed for pain. Crutches or walker to help with the pain with getting around. Problem Qualifiers Primary Impression: Foot ulcer, left Non-pressure ulcer stage: unspecified non-pressure ulcer stage Qualified Codes: L97.529 - Non-pressure chronic ulcer of other part of left foot with unspecified severity SCOTTIE VELASQUEZ MD Jun 02, 2019 22:10
[2019-06-02] MEDS ORDERED: CELE-1 PO (22:12)
[2019-06-02] MEDS ORDERED: [UNRECOGNIZED DRUG - REMARK] (22:12)
[2019-06-02 22:42] LABS: PLATELET COUNT, AUTOMATED 269 K/uL (150-450)
[2019-06-03] MEDS ORDERED: ACET/HYDROC 5/325MG TH ER ONLY 2 TAB/BOTTLE PO ONE (00:10)
[2019-06-03] MEDS ORDERED: APAP/HYDROCODONE 325/5 TAB PO ONE (00:10)
--- NOTE | 2019-06-03 00:10 | RADIOLOGY IMAGING REPORT ---
FACILITY: [facility] PATIENT NAME: Yakov Jones : 1970 MR: [id number] V: [id number] EXAM DATE: ORDERING PHYSICIAN: SCOTTIE VELASQUEZ TECHNOLOGIST: Location: [facility] Patient: Yakov Jones : 1970 Visit/Account:[id number] Date of Sevice: 06/02/2019 EXAMINATION: Left foot, 3 views 06/02/2019 10:24 PM HISTORY: foot ulcer, pain COMPARISON: 02/16/2018. FINDINGS: Please note that the technologist initially in correctly images of the right foot since th e patient was complaining of pain on that side as well. We're attempting to delete those images. This is a left foot study, and I do have 3 left foot images. Soft tissues in the foot are swollen. There is a plantar ulcer with gas at the level of the cuboid maximilian ne. Plantar calcaneal spurring is present. No definite lytic or destructive features of osteomyelitis . There is irregularity of the distal phalanx of the second toe although this is not clearly an activ e lytic process and may reflect old trauma or even a congenital deformity. Hallux valgus angulation o f the first MTP with mild spurring in the joint. IMPRESSION: Soft tissue swelling and a plantar ulcer in the foot without definite underlying features of osteomye litis, as discussed above. Report Dictated By: Oscar Luong MD at 06/02/2019 11:56 PM Report E-Signed By: Oscar Luong MD at 06/03/2019 12:03 AM WSN:[id number]
[2019-06-03] MEDS ORDERED: LOR5/325 PO (00:11)
== END 2019-06-03 00:38 | disposition home or self-care (01) ==
LOC: ER 22:09
DX: L97.529 Non-pressure chronic ulcer of other part of left foot with unspecified severity (principal)
CPT/HCPCS: 82040; 82247; 82310; 82374; 82435; 82565; 82947; 84075; 84132; 84155; 84295; 84450; 84460; 84520; 85025; 85651; 86140; 99283